=== PATIENT | female | born 1965 | race Hispanic/Latino ===

== ENCOUNTER 2023-06-13 08:40 | Inpatient (IN) | payer OTHER ==
[2023-06-13] VITALS (7 sets, daily range): BP systolic 139–158; BP diastolic 76–108; PULSE 80–102; RESP 14–22; O2SAT 99–100
[~2023-06-13] VITALS: Ht 167.6 cm; Wt 113.9 kg
[2023-06-13 09:22] LABS: BASOPHILS # (AUTO) 0.04 K/uL (0.00-0.20); BASOPHILS % (AUTO) 0.4 % (0.0-5.0); HEMATOCRIT 44.5 % (36-48); IMMATURE GRANULOCYTE ABSOLUTE 0.07 K/uL (0-1); LYMPHOCYTES # (AUTO) 1.1 K/uL (1.0-4.8); LYMPHOCYTES % (AUTO) 10.7 % (21.0-51.0); MEAN CORPUSCULAR HEMOGLOBIN 27.7 pg (27.0-33.0); MEAN CORPUSCULAR VOLUME 83.8 fL (79-99); MONOCYTES # (AUTO) 0.2 K/uL (0.1-1.0); MONOCYTES % (AUTO) 2.3 % (3.0-13.0); NEUTROPHILS # (AUTO) 9.1 K/uL (1.8-7.7); NEUTROPHILS % (AUTO) 85.9 % (40.0-77.0); PLATELET COUNT (AUTO) 281 K/uL (130-400); RED BLOOD CELL COUNT(AUTO) 5.31 MIL/uL (4.00-5.50); WHITE BLOOD COUNT (AUTO) 10.6 K/uL (4.8-10.8)
[2023-06-13 09:56] LABS: ABG BASE EXCESS 2.5 mmol/L (-2.0-3.0); ABG HCO3 25.8 mmol/L (21.0-28.0); ABG OXYGEN SATURATION 99.2 % (95.0-99.0); ABG PCO2 36 mmHg (32-45); ABG PH 7.474 (7.35-7.450); CARBON MONOXIDE 11.2; HHb 0.7; PO2, ARTERIAL BG 496.1 mmHg (83.0-108.0); VENT MODE, BG NRB (ROOM AIR)
[2023-06-13 10:04] LABS: ALBUMIN 3.6 g/dL (3.5-5.0); BILIRUBIN,TOTAL 0.5 mg/dL (0.2-1.0); POTASSIUM 3.8 mmol/L (3.5-5.1); TOTAL PROTEIN, SERUM 7.8 g/dL (6.0-8.3)
[2023-06-13] MEDS ORDERED: ACETAMINOPHEN 500 MG TABLET PO PRN (12:00)
[2023-06-13] MEDS ORDERED: LABETALOL 20MG VIAL IV PRN (12:00)
[2023-06-13] MEDS ORDERED: ONDANSETRON 4MG INJ IVP PRN (12:00)
[2023-06-13] MEDS: 0.9%NACL 1000ML 1,000 ML IV SCH (12:11)
[2023-06-13 12:17] LABS: INR 1.03 (0.85-1.15); PROTHROMBIN TIME 11.9 SEC (9.6-11.6)
[2023-06-13 12:19] LABS: PARTIAL THROMBOPLASTIN TIME 32.4 SEC (26.3-35.5)
[2023-06-13] MEDS ORDERED: ZOLP10TA2 PO (12:19)
[2023-06-13] MEDS ORDERED: SEMA1PEN3 SQ (12:19)
[2023-06-13] MEDS ORDERED: LOSA100T59 PO (12:19)
[2023-06-13] MEDS ORDERED: TRIA1CAP87 PO (12:19)
[2023-06-13] MEDS ORDERED: FLUO60TA PO (12:19)
[2023-06-13 12:22] LABS: HEMOGLOBIN A1C 5.5 % (4.0-6.0)
[2023-06-13 12:42] LABS: MAGNESIUM 1.6 mg/dL (1.80-2.40); THYROID STIMULATING HORMONE 1.63 uIU/mL (0.36-3.74)
[2023-06-13] MEDS ORDERED: MAGNESIUM 2GM PREMIX 50ML 50 ML IV SCH (13:30)
[2023-06-13] MEDS ORDERED: POTASSIUM CHLORIDE 20MEQ/100ML 100 ML IV PRN (13:30)
[2023-06-13] MEDS ORDERED: POTASSIUM CHLORIDE 10% ELIXIR 20 MEQ/15 ML UDCUP PO PRN (13:30)
[2023-06-13] MEDS: ASPIRIN 81 MG EC TAB PO SCH (15:38)
[2023-06-13] MEDS: KCL 20 MEQ ERTAB PO PRN ×2 (15:38→17:32)
[2023-06-13] MEDS: PANTOPRAZOLE 40 MG TAB DR PO SCH (15:40)
[2023-06-13] MEDS: LOSARTAN 100 MG TABLET PO SCH (15:41)
[2023-06-13] MEDS ORDERED: PANTOPRAZOLE 40 MG TAB DR PO SCH (19:00)
[2023-06-13] MEDS ORDERED: NON-FORMULARY MEDICATION 1 EACH (Zolpidem Tartrate (Ambien) 10 MG) PO SCH (21:00)
[2023-06-13] MEDS: ZOLPIDEM TARTRATE 5 MG TAB PO PRN (23:02)
[2023-06-14] VITALS (8 sets, daily range): BP systolic 121–149; BP diastolic 65–88; PULSE 80–95; RESP 18–24; O2SAT 98–100
[2023-06-14] MEDS: 0.9%NACL 1000ML 1,000 ML IV SCH ×2 (01:08→14:40)
[2023-06-14 04:22] LABS: BASOPHILS # (AUTO) 0.03 K/uL (0.00-0.20); BASOPHILS % (AUTO) 0.5 % (0.0-5.0); EOSINOPHILS # (AUTO) 0.05 K/uL (0.00-0.70); EOSINOPHILS % (AUTO) 0.8 % (0.0-8.0); HEMATOCRIT 38.9 % (36-48); IMMATURE GRANULOCYTE ABSOLUTE 0.01 K/uL (0-1); LYMPHOCYTES # (AUTO) 2.1 K/uL (1.0-4.8); LYMPHOCYTES % (AUTO) 32.3 % (21.0-51.0); MEAN CORPUSCULAR HEMOGLOBIN 27.4 pg (27.0-33.0); MEAN CORPUSCULAR HGB CONC 32.4 g/dL (32.0-36.0); MEAN CORPUSCULAR VOLUME 84.6 fL (79-99); MONOCYTES # (AUTO) 0.4 K/uL (0.1-1.0); MONOCYTES % (AUTO) 6.9 % (3.0-13.0); NEUTROPHILS # (AUTO) 3.8 K/uL (1.8-7.7); NEUTROPHILS % (AUTO) 59.3 % (40.0-77.0); PLATELET COUNT (AUTO) 252 K/uL (130-400); RED CELL DISTRIBUTION WIDTH 14.3 % (11.0-15.5); WHITE BLOOD COUNT (AUTO) 6.4 K/uL (4.8-10.8)
[2023-06-14 04:31] LABS: CREATININE 0.8 mg/dL (0.5-1.5); MAGNESIUM 1.7 mg/dL (1.80-2.40); POTASSIUM 3.3 mmol/L (3.5-5.1)
[2023-06-14] MEDS: KCL 20 MEQ ERTAB PO PRN (05:10)
[2023-06-14] MEDS ORDERED: FLUOXETINE HCL 60 MG PO SCH (09:00)
[2023-06-14] MEDS: ASPIRIN 81 MG EC TAB PO SCH (09:32)
[2023-06-14] MEDS: PANTOPRAZOLE 40 MG TAB DR PO SCH (09:32)
[2023-06-14] MEDS: LOSARTAN 100 MG TABLET PO SCH (09:33)
[2023-06-14] MEDS: TRIAMTEREN/HCTZ 37.5/25 MG 1 TAB TAB PO SCH (09:33)
[2023-06-14] MEDS: FLUOXETINE HCL 20 MG CAPSULE PO SCH (09:33)
[2023-06-14] MEDS: ZOLPIDEM TARTRATE 5 MG TAB PO PRN (20:56)
[2023-06-15] VITALS: BP 137/76; PULSE 86; RESP 20
[2023-06-15] MEDS: 0.9%NACL 1000ML 1,000 ML IV SCH (03:31)
[2023-06-15 03:50] LABS: BASOPHILS # (AUTO) 0.03 K/uL (0.00-0.20); BASOPHILS % (AUTO) 0.4 % (0.0-5.0); EOSINOPHILS # (AUTO) 0.09 K/uL (0.00-0.70); EOSINOPHILS % (AUTO) 1.2 % (0.0-8.0); HEMATOCRIT 40.2 % (36-48); IMMATURE GRANULOCYTE ABSOLUTE 0.02 K/uL (0-1); LYMPHOCYTES # (AUTO) 2.4 K/uL (1.0-4.8); LYMPHOCYTES % (AUTO) 31.7 % (21.0-51.0); MEAN CORPUSCULAR HEMOGLOBIN 27.4 pg (27.0-33.0); MEAN CORPUSCULAR HGB CONC 32.1 g/dL (32.0-36.0); MEAN CORPUSCULAR VOLUME 85.5 fL (79-99); MONOCYTES # (AUTO) 0.5 K/uL (0.1-1.0); NEUTROPHILS # (AUTO) 4.5 K/uL (1.8-7.7); NEUTROPHILS % (AUTO) 59.4 % (40.0-77.0); PLATELET COUNT (AUTO) 257 K/uL (130-400); WHITE BLOOD COUNT (AUTO) 7.5 K/uL (4.8-10.8)
[2023-06-15 03:56] LABS: CREATININE 0.7 mg/dL (0.5-1.5); POTASSIUM 3.3 mmol/L (3.5-5.1)
[2023-06-15 04:00] VITALS: BP 129/77; PULSE 85; RESP 20
[2023-06-15 08:00] VITALS: BP 114/63; PULSE 78; RESP 17; O2SAT 97
[2023-06-15] MEDS: LOSARTAN 100 MG TABLET PO SCH (09:00)
[2023-06-15] MEDS: FLUOXETINE HCL 20 MG CAPSULE PO SCH (09:00)
[2023-06-15] MEDS: TRIAMTEREN/HCTZ 37.5/25 MG 1 TAB TAB PO SCH (11:22)
[2023-06-15 11:30] VITALS: BP 127/80; PULSE 86; RESP 20
[2023-06-15] MEDS: ASPIRIN 81 MG EC TAB PO SCH (14:16)
== END 2023-06-15 14:45 | disposition home or self-care (01) | DRG 917 ==
LOC: EDH 08:40 → EDHIP 11:31 → 2DH 11:51 → 4AH 06-14 17:15
PROVIDERS: ADMIT Internal Medicine; ATTEND Internal Medicine
DX: T58.11XA Toxic effect of carbon monoxide from utility gas, accidental (unintentional), initial encounter (principal); I21.A1 Myocardial infarction type 2; Z68.41 Body mass index [BMI] 40.0-44.9, adult; R55 Syncope and collapse; I10 Essential (primary) hypertension; E66.01 Morbid (severe) obesity due to excess calories; E78.5 Hyperlipidemia, unspecified; G47.00 Insomnia, unspecified; F32.A Depression, unspecified; K76.0 Fatty (change of) liver, not elsewhere classified; Z79.82 Long term (current) use of aspirin; Z82.41 Family history of sudden cardiac death; Z86.15 Personal history of latent tuberculosis infection; Z79.899 Other long term (current) drug therapy; Y92.89 Other specified places as the place of occurrence of the external cause; Z90.49 Acquired absence of other specified parts of digestive tract
CPT/HCPCS: 36415; 36600; 70450; 71045; 80048; 80053; 80061; 82375; 82435; 82550; 82803; 82947; 83036; 83605; 83735; 83874; 84132; 84295; 84439; 84443; 84484; 84703; 85018; 85025; 85610; 85730; 93005; 93306; G0378; J3475